=== PATIENT | female | born 1985 | race African-American/Black ===

== ENCOUNTER 2020-11-02 11:01 | Emergency (ER) | payer OTHER ==
[~2020-11-02] VITALS: Ht 165.1 cm; Wt 59.0 kg
[~2020-11-02 11:01] MED LIST: ACETAMINOPHEN-1 EAC1 PO; PEPCID20 MG PO; PREDNISONE 20 M20 MG PO; ZOFRAN4 MG PO
[2020-11-02] MEDS ORDERED: LINZESS290 MCG PO (11:22)
[2020-11-02 12:07] LABS: ABSOLUTE NEUTROPHILS 6.3 thou/uL (1.4-8.2); BASOPHILS 0.4 % (0.0-2.0); EOSINOPHILS 0.5 % (0.0-3.0); HEMATOCRIT 38.7 % (37.0-47.0); HEMOGLOBIN 13.1 gm/dL (12.0-15.0); LYMPHOCYTES 20.1 % (24.0-44.0); MCH 30.8 pg (26.0-34.0); MCHC 33.8 g/dL (28.0-37.0); MCV 91.1 fL (80.0-100.0); MONOCYTES 7.8 % (1.0-8.0); PLATELET COUNT 305 thou/uL (150-400); POLYS 71.2 % (36.0-66.0); RBC 4.25 mil/uL (4.20-5.00); RDW 14.7 % (10.5-14.5); WBC 8.9 thou/uL (4.0-11.0)
[2020-11-02 12:19] LABS: CREATININE 0.7 mg/dL (0.6-1.0)
[2020-11-02 12:25] LABS: TOTAL BILIRUBIN 0.4 mg/dL (0.2-1.0); TOTAL PROTEIN 8.5 g/dL (6.4-8.2)
[2020-11-02] MEDS ORDERED: CYCLOBENZAPRINE5 MG PO (13:54)
[2020-11-02] MEDS ORDERED: NORCO 10-325 T1 EACH PO (13:54)
[2020-11-02 14:28] VITALS: BP 98/69
== END 2020-11-02 14:38 | disposition home or self-care (01) ==
LOC: ER 11:01
PROVIDERS: Physician Assistant
DX: R10.32 Left lower quadrant pain (principal); M25.552 Pain in left hip; M79.89 Other specified soft tissue disorders; Z79.899 Other long term (current) drug therapy; Z88.0 Allergy status to penicillin; Z88.2 Allergy status to sulfonamides